=== PATIENT | male | born 1990 | race Two or more races ===

== ENCOUNTER 2017-09-12 11:14 | Emergency (ER) | payer MEDICAID ==
[~2017-09-12] VITALS: Ht 175.3 cm; Wt 70.3 kg
[2017-09-12 11:16] VITALS: BP 142/81
== END 2017-09-12 12:23 | disposition home or self-care (01) ==
LOC: ER 11:14
DX: S20.219A Contusion of unspecified front wall of thorax, initial encounter (principal); F17.210 Nicotine dependence, cigarettes, uncomplicated; V49.9XXA Car occupant (driver) (passenger) injured in unspecified traffic accident, initial encounter; Y93.89 Activity, other specified; Y92.488 Other paved roadways as the place of occurrence of the external cause; Y99.8 Other external cause status

== ENCOUNTER 2018-10-15 07:34 | Emergency (ER) | payer SELFPAY ==
[~2018-10-15] VITALS: Ht 175.3 cm; Wt 81.6 kg
[2018-10-15 07:40] VITALS: BP 131/78
== END 2018-10-15 08:33 | disposition home or self-care (01) ==
LOC: ER 07:34
DX: J03.90 Acute tonsillitis, unspecified (principal); F17.200 Nicotine dependence, unspecified, uncomplicated; F12.10 Cannabis abuse, uncomplicated

== ENCOUNTER 2019-02-02 13:53 | Emergency (ER) | payer SELFPAY ==
[~2019-02-02] VITALS: Ht 175.3 cm; Wt 81.6 kg
[2019-02-02 14:23] VITALS: BP 122/76
[2019-02-02] MEDS ORDERED: ACETAMINOPHEN 325 MG TAB PO ONE (15:15)
== END 2019-02-02 15:22 | disposition home or self-care (01) ==
LOC: ER 13:54
DX: S01.01XA Laceration without foreign body of scalp, initial encounter (principal); F17.210 Nicotine dependence, cigarettes, uncomplicated; F12.10 Cannabis abuse, uncomplicated; W22.8XXA Striking against or struck by other objects, initial encounter; Y93.89 Activity, other specified; Y99.8 Other external cause status; Y92.89 Other specified places as the place of occurrence of the external cause
CPT/HCPCS: 12002; 70450

== ENCOUNTER 2021-06-18 03:11 | Emergency (ER) | payer SELFPAY ==
[~2021-06-18] VITALS: Ht 175.3 cm; Wt 63.5 kg
[2021-06-18 06:00] VITALS: BP 116/76
[2021-06-18] MEDS ORDERED: cefTRIAXone SOD 1,000 MG VL IM ONE (06:30)
[2021-06-18] MEDS ORDERED: IBUPROFEN 800 MG TAB PO ONE (06:30)
== END 2021-06-18 06:56 | disposition home or self-care (01) ==
LOC: ER 03:11
DX: L02.223 Furuncle of chest wall (principal); F17.210 Nicotine dependence, cigarettes, uncomplicated; F12.10 Cannabis abuse, uncomplicated
CPT/HCPCS: 96372; 99283; J0696

== ENCOUNTER 2023-09-12 09:20 | Emergency (ER) | payer MEDICAID ==
[~2023-09-12] VITALS: Ht 175.3 cm; Wt 63.4 kg
[2023-09-12 10:56] VITALS: BP 103/71; PULSE 80; RESP 18; TEMP 97.9; O2SAT 99
[2023-09-12] MEDS ORDERED: ACETAMINOPHEN 500 MG TAB PO ONE (11:00)
[2023-09-12] MEDS ORDERED: KETOROLAC TROMETH 30 MG/ML 1ML VIAL IM ONE (11:00)
== END 2023-09-12 13:08 | disposition home or self-care (01) ==
LOC: ER 09:20
DX: M25.512 Pain in left shoulder (principal); M54.2 Cervicalgia; F17.210 Nicotine dependence, cigarettes, uncomplicated; F12.90 Cannabis use, unspecified, uncomplicated
CPT/HCPCS: 73030; 96372; 99283; J1885